=== PATIENT | male | born 1970 ===

== ENCOUNTER 2018-06-20 14:03 | Emergency (ER) | payer OTHER ==
[2018-06-20 14:07] VITALS: BMI 22.0
[2018-06-20 14:12] VITALS: BP 113/73; PULSE 95; RESP 19; TEMP 98.9; O2SAT 100
[2018-06-20] MEDS ORDERED: Albuterol 0.083% Inhal Sol (2.5 mg/3 mL) UD IH STA (14:44)
--- NOTE | 2018-06-20 14:45 | C.PDOC ---
History Of Present Illness 47 y/o male presents to ED complaining of a productive cough with yellow phlegm, nasal congestion, headache, and body aches for the past week, and not improving. Denies sick contacts. Patient has positive subjective fever. Time Seen by Provider: 06/20/18 14:25 Chief Complaint (Nursing): Fever History Per: Patient History/Exam Limitations: no limitations Onset/Duration Of Symptoms: Days Current Symptoms Are (Timing): Still Present Past Medical History Reviewed: Historical Data, Nursing Documentation, Vital Signs Vital Signs: Last Vital Signs Temp 98.9 F 06/20/18 14:10 Pulse 95 H 06/20/18 14:10 Resp 19 06/20/18 14:10 BP 113/73 06/20/18 14:10 Pulse Ox 100 06/20/18 14:10 Surgical History: No Surg Hx Family History: States: No Known Family Hx - Social History Hx Alcohol Use: Yes Hx Substance Use: No - Immunization History Hx Tetanus Toxoid Vaccination: No Hx Influenza Vaccination: No Hx Pneumococcal Vaccination: No Review Of Systems Except As Marked, All Systems Reviewed And Found Negative. Constitutional: Positive for: Fever ENT: Positive for: Nose Congestion Respiratory: Positive for: Cough (productive with yellow phlegm) Neurological: Positive for: Headache Physical Exam - Physical Exam Appears: Non-toxic, No Acute Distress Skin: Warm, Dry Head: Atraumatic, Normacephalic Eye(s): bilateral: Normal Inspection Ear(s): Bilateral: Normal Oral Mucosa: Moist Throat: Normal, No Erythema, No Exudate Neck: Supple Chest: Symmetrical Cardiovascular: Rhythm Regular, No Murmur Respiratory: Normal Breath Sounds, No Rales, No Rhonchi, No Wheezing, Other (Positive dry cough) Extremity: Bilateral: Atraumatic, Normal Color And Temperature, Normal ROM Neurological/Psych: Oriented x3, Normal Speech, Normal Motor, Normal Sensation, Normal Reflexes ED Course And Treatment O2 Sat by Pulse Oximetry: 100 (RA) Pulse Ox Interpretation: Normal Medical Decision Making Medical Decision Making: Plan: --Albuterol --Zithromax On re-evaluation, patient is resting comfortably, and is in no acute distress. Patient states symptoms have improved and cough has subsided. Instructed patient to follow up with PMD in 1-2 days for further evaluation and to return to ED if symptoms worsen. Disposition Counseled Patient/Family Regarding: Studies Performed, Diagnosis, Need For Followup, Rx Given - Disposition Referrals: Ginny Lake [Staff Provider] - Disposition: HOME/ ROUTINE Disposition Time: 15:37 Condition: STABLE Additional Instructions: FOLLOW UP WITH PMD IN 1-2 DAYS FOR RE-EVALUATION. IF SYMPTOMS GET WORSE OR ANY NEW CONCERNING SYMPTOMS DEVELOP RETURN TO ED. Prescriptions: Benzonatate [Tessalon Perles] 2 cap PO TID PRN #20 sgl PRN Reason: Cough Albuterol HFA [Ventolin HFA 90 mcg/actuation (8 g)] 2 puff IH Q4H PRN #1 bottle PRN Reason: Cough Azithromycin [Zithromax] 250 mg PO DAILY #4 tab Instructions: Acute Bronchitis Forms: [facility] (Mongolian), General Discharge Instructions - Clinical Impression Clinical Impression: Bronchitis - PA / [employer] / Resident Statement MD/DO has reviewed & agrees with the documentation as recorded. - Scribe Statement The provider has reviewed the documentation as recorded by the Scribgómez Pearson All medical record entries made by the Millyibgómez were at my direction and personally dictated by me. I have reviewed the chart and agree that the record accurately reflects my personal performance of the history, physical exam, medical decision making, and the department course for this patient. I have also personally directed, reviewed, and agree with the discharge instructions and disposition.
[2018-06-20] MEDS ORDERED: Albuterol 0.083% Inhal Sol (2.5 mg/3 mL) UD ONE (14:47)
== END 2018-06-20 15:44 | disposition home or self-care (01) ==
LOC: C.ER 14:03
DX: J40 Bronchitis, not specified as acute or chronic (principal); F17.210 Nicotine dependence, cigarettes, uncomplicated